=== PATIENT | male | born 1950 | race Caucasian/White ===

== ENCOUNTER → 2017-01-16 | Outpatient (CLI) | payer OTHER, MEDICARE | LOC: FIMAGING 07:29 | PROVIDERS: ATTEND Internal Medicine | DX: R41.89 Other symptoms and signs involving cognitive functions and awareness (principal); R47.9 Unspecified speech disturbances; R51 Headache ==

== ENCOUNTER 2017-05-27 09:20 | Inpatient (IN) | payer OTHER, MEDICARE ==
--- NOTE | 2017-05-27 08:08 | PDHPUP ---
History & Physical Update H&P update statement: This history and physical update is based on an assessment of the patient which was completed after admission or registration (within 24 hours), but prior to the surgery/procedure. H&P update: H&P reviewed & patient examined, no change in patient's condition since H&P completed
[~2017-05-27 09:20] MED LIST: BUPI/epINEPH/KETOROLAC IU ONE; ROPIVACAINE 0.2% 80 MG, EPINEPHrine 0.2 MG, KETOROLAC TROMETHAMINE 30 MG in SYRINGE 0 ML IU ONE; TRANEXAMIC ACID 3,000 MG in NS (SYRINGE) 50 ML IRR ONE; TRANEXAMIC ACID 3,000 MG/50 ML BAG IRR ONE
[2017-05-27] MEDS ORDERED: ceFAZolin 2 GM/SWFI 2 GM/20 ML SYR IVP ONE (09:47)
[2017-05-27] MEDS ORDERED: DEXAMETHASONE 4 MG/ML VIAL IVP ONE (09:47)
[2017-05-27] MEDS ORDERED: FAMOTIDINE 20 MG TAB PO ONE (09:47)
[2017-05-27] MEDS ORDERED: ACETAMINOPHEN 325 MG TAB PO ONE (09:47)
[2017-05-27] MEDS ORDERED: LR 1,000 ML IV ONE (09:48)
[2017-05-27] MEDS ORDERED: LIDOCAINE 1% 2 ML INJ ID PRN (09:48)
--- NOTE | 2017-05-27 10:15 | PDANEPAE ---
ANE History of Present Illness 66 yo male with L hip OA for L ELIDA. ANE Past Medical History - Cardiovascular History Hx Hypertension: No Hx Arrhythmias: No Hx Chest Pain: No Hx Coronary Artery / Peripheral Vascular Disease: No Hx CHF / Valvular Disease: No Hx Palpitations: No - Pulmonary History Hx COPD: No Hx Asthma/Reactive Airway Disease: No Hx Recent Upper Respiratory Infection: No Hx Oxygen in Use at Home: No Hx Sleep Apnea: Yes Sleep Apnea Screening Result - Last Documented: Positive Pulmonary History Comment: JESSICA uses C-PAP - Neurologic History Hx Cerebrovascular Accident: No Hx Seizures: No Hx Dementia: No Neurologic History Comment: h/o CHI 40 years ago, no sequelae now - Endocrine History Hx Diabetes: No Hypothyroid: No Hyperthyroid: No Obesity: no - Renal History Hx Renal Disorders: No - Liver History Hx Hepatic Disorders: No - Neurological & Psychiatric Hx Hx Neurological and Psychiatric Disorders: Yes Neurological / Psychiatric History Comment: depression - Cancer History Hx Cancer: No - Congenital Disorder History Hx Congenital Disorders: No - GI History Hx Gastrointestinal Disorders: Yes Gastrointestinal History Comment: IBS - Other Health History Other Health History: cataracts - Chronic Pain History Chronic Pain: Yes (back issues - upper and lower back, no specific therapies) - Surgical History Prior Surgeries: double hernia with mesh. anal fistula repair. hx of head injury multiple fracture, 40 yrs ago ANE Review of Systems Review of systems is: negative Review of Systems: - Exercise capacity METS (RN): 4 METS ANE Patient History - Allergies Allergies/Adverse Reactions: ciprofloxacin [From Cipro] Allergy (Verified 05/14/17 10:29) Other-Enter Comments - Home Medications Home Medications: Acetaminophen [Tylenol 325mg (*)] 325 mg PO DAILY PRN 05/14/17 [Last Taken 05/26 19:00] FLUoxetine [Prozac 10 MG (*)] 30 mg PO DAILY 05/14/17 [Last Taken 05/27/17 07:00 ] Herbals/Supplements -Info Only 1 ea PO DAILY 05/14/17 [Last Taken 05/20/17] Ibuprofen [Motrin (*)] 200 mg PO DAILY PRN 05/14/17 [Last Taken 05/20/17] - NPO status NPO Since - Liquids (Date): 05/27/17 NPO Since - Liquids (Time): 08:00 NPO Since - Solids (Date): 05/26/17 NPO Since - Solids (Time): 19:00 - Anes Hx Anes Hx: no prior problems - Smoking Hx Smoking Status: Former smoker (remote h/p smoking as a teenager) Marijuana use: Yes - Alcohol Use Alcohol Use: Rarely - Family Anes Hx Family Anes Hx: neg - N/A Family Hx Anesthesia Complications: none ANE Labs/Vital Signs - Vital Signs Blood Pressure: 169/81 Heart Rate: 57 Respiratory Rate: 16 O2 Sat (%): 99 Height: 177.8 cm Weight: 83.915 kg ANE Physical Exam - Airway Neck exam: FROM Mallampati Score: Class 2 Mouth exam: normal dental/mouth exam - Pulmonary Pulmonary: clear to auscultation - Cardiovascular Cardiovascular: regular rate and rhythym, no murmur, rub, or gallop - ASA Status ASA Status: II ANE Anesthesia Plan Anesthesia Plan: spinal
[2017-05-27] MEDS ORDERED: LIDOCAINE 2% 5 ML SDV ONE (10:57)
[2017-05-27] MEDS ORDERED: fentaNYL 100 MCG/2 ML INJ ONE (10:57)
[2017-05-27] MEDS ORDERED: DEXAMETHASONE 4 MG/ML VIAL ONE (10:57)
[2017-05-27] MEDS ORDERED: PROPOFOL/EMULSION 500 MG/50 ML BOTTLE IV ONE (10:58)
[2017-05-27] MEDS ORDERED: PROMETHAZINE HCL 25 MG/ML INJ IVP PRN (12:31)
[2017-05-27] MEDS ORDERED: ONDANSETRON DISINTEGRATING 4 MG TAB PO PRN (12:31)
[2017-05-27] MEDS ORDERED: diphenhydrAMINE 25 MG CAP PO PRN (12:31)
[2017-05-27] MEDS ORDERED: CYCLOBENZAPRINE 10 MG TAB PO PRN (12:31)
[2017-05-27] MEDS ORDERED: PROMETHAZINE HCL 25 MG SUPPR PR PRN (12:31)
[2017-05-27] MEDS ORDERED: TEMAZEPAM 15 MG CAP PO PRN (12:31)
[2017-05-27] MEDS ORDERED: DIPHENOXYLATE/ATROPINE LOMOTIL 1 TAB PO PRN (12:31)
[2017-05-27] MEDS ORDERED: ONDANSETRON 4 MG/2 ML VIAL IVP PRN (12:31)
[2017-05-27] MEDS ORDERED: METOCLOPRAMIDE 10 MG/2 ML VIAL IVP PRN (12:31)
[2017-05-27] MEDS ORDERED: POLYETHYLENE GLYCOL 3350 17 GM PKT PO PRN (12:31)
[2017-05-27] MEDS ORDERED: MAGNESIUM HYDROXIDE 30 ML UDCUP PO PRN (12:31)
[2017-05-27] MEDS ORDERED: BISACODYL 10 MG SUPP PR PRN (12:31)
[2017-05-27] MEDS ORDERED: LACTULOSE 20 GM/30 ML UDCUP PO PRN (12:31)
--- NOTE | 2017-05-27 12:35 | POSTOPPROG ---
Post Op Note Date of Operation: 05/27/17 Surgeon: Zora Villanueva Destination Sign Repairer: francoise villanueva Anesthesiologist: dr. marr Anesthesia: Spinal Pre-op Diagnosis: L hip OA Post-op Diagnosis: same Indication: left hip pain Procedure: L ELIDA ant approach Findings: severe hip OA Inf/Abcess present in the surg proc area at time of surgery?: No EBL: 100-500
--- NOTE | 2017-05-27 12:39 | POSTANESTH ---
Post Anesthetic Evaluation Cardiovascular Status: Normal, Stable Respiratory Status: Normal, Stable Level of Consciousness/Mental Status: Can Participate in Eval, Moderately Sleepy Pain Control: Adequate, Prn Tx Ordered Nausea/Vomiting Control: Adequate, Prn Tx Ordered Complications Possibly Related to Anesthesia: None Noted
[2017-05-27] MEDS ORDERED: LR 1,000 ML IV SCH (13:00)
--- NOTE | 2017-05-27 13:39 | PDMN ---
Medical Necessity Medical necessity: [facility] IP only surgery; cpt 35096 L ELIDA
[2017-05-27] MEDS ORDERED: ceFAZolin 2 GM/DEXTROSE 100 ML IV SCH (14:00)
[2017-05-27] MEDS: oxyCODONE IR 5 MG TAB PO PRN ×2 (14:28→18:47)
[2017-05-27] MEDS: ACETAMINOPHEN 325 MG TAB PO SCH (18:48)
[2017-05-27] MEDS: ceFAZolin 2 GM/SWFI 2 GM/20 ML SYR IVP SCH (20:07)
[2017-05-27] MEDS: ASPIRIN 81 MG CHEWABLE TAB PO SCH (20:26)
[2017-05-27] MEDS: SENNOSIDES/DOCUSATE SODIUM TAB PO SCH (20:26)
[2017-05-27] MEDS: FAMOTIDINE 20 MG TAB PO SCH (20:26)
[2017-05-28] MEDS: ACETAMINOPHEN 325 MG TAB PO SCH ×3 (00:05→13:23)
[2017-05-28] MEDS: ceFAZolin 2 GM/SWFI 2 GM/20 ML SYR IVP SCH (04:05)
[2017-05-28] MEDS: oxyCODONE IR 5 MG TAB PO PRN (05:53)
[2017-05-28 07:31] VITALS: BP 129/70
[2017-05-28] MEDS ORDERED: FLUoxetine 20 MG CAP PO SCH (09:00)
[2017-05-28] MEDS ORDERED: FLUoxetine 10 MG CAP PO SCH ×2 (09:00→09:45)
[2017-05-28] MEDS: FAMOTIDINE 20 MG TAB PO SCH (10:03)
[2017-05-28] MEDS: ASPIRIN 81 MG CHEWABLE TAB PO SCH (10:03)
[2017-05-28] MEDS: SENNOSIDES/DOCUSATE SODIUM TAB PO SCH (10:03)
[2017-05-29] MEDS ORDERED: FLUoxetine 10 MG CAP PO SCH (09:00)
--- NOTE | 2017-05-29 15:16 | GOP ---
[f rep st] OPERATIVE REPORT DATE OF OPERATION: 05/27/2017 SURGEON: Lexi Prescott MD CLOSING AGENT: Rosa Prescott PA-C ANESTHESIA: Spinal. PREOPERATIVE DIAGNOSIS: Left hip osteoarthritis. POSTOPERATIVE DIAGNOSIS: Left hip osteoarthritis. PROCEDURE PERFORMED: Left total hip arthroplasty. FINDINGS: ESTIMATED BLOOD LOSS: 200 cc. IMPLANTS: Accolade II, size 8 at 127. The acetabular component is a 56 mm Tritanium. The liner is a Trident X3, 36 mm. The head is a Biolox Delta, 36 mm +5. INDICATIONS: The patient has progressively worsening arthritis of the hip which has failed medical management. The patient understands the treatment options including continued non-operative care and has selected surgical intervention. The patient has decided to undergo total hip arthroplasty via the direct anterior approach, understanding the risks of the procedure including, but not limited to, neurovascular injury, infection, persistent pain, component wear and loosening, deep venous thrombosis, pulmonary embolism, limb length inequality, hip instability (including dislocation), and intra-operative fractures. DESCRIPTION OF PROCEDURE: After proper identification of the patient including verification and marking the surgical site, the patient was brought to the operating room and placed in the supine position. All bony prominences were well padded. Anesthesia was induced without complication and intravenous prophylactic antibiotics were administered prior to skin incision. The operative leg was placed in the Trumpf Arch table extension and the well leg in a [place] leg adams. The patient was prepped and draped in the usual sterile fashion. The C-arm was draped for intra-operative fluoroscopy to check acetabular position, femoral component position including leg length and femoral offset. Attention was then drawn to surgical exposure of the hip. An incision was made with a #10 Bard Keven blade starting 3 cm lateral and 3 cm distal to the anterior superior iliac spine measuring 8-10 cm and coursing distally toward the greater trochanter. The skin and subcutaneous tissues were divided sharply down to the fascia yan. The fascia yan was incised in line with the skin incision exposing the underlying tensor fascia yan muscle. The muscle was bluntly elevated from the fascia and the first extracapsular Cobra retractor was placed laterally at the junction of the superior femoral neck and greater trochanter. The lateral femoral circumflex vessels were identified, cauterized, and divided with the Aquamantys bipolar cautery. The deep investing fascia of the TFL was divided to allow proper mobilization of the muscle preventing damage during the retraction. The reflected head of the rectus femoris muscle was elevated off the anterior hip capsule and a medial Cobra retractor was placed just proximal to the lesser trochanter. The anterior capsulotomy was made sharply from the superolateral acetabulum to the saddle junction of the superior femoral neck and greater trochanter, then coursing inferomedial towards the lesser trochanter. The retractors were then placed in the intracapsular position for femoral neck osteotomy. Corresponding to pre-operative templating, the osteotomy was made with the oscillating saw carefully protecting the greater trochanter and soft tissues. The femoral head was removed from the acetabulum with a corkscrew and confirmed to be severely arthritic with exposed bone, deformity and osteophytes. Similar findings were confirmed in the acetabulum. The Arch table extension was then placed in 40 degrees external rotation. Attention was then drawn to the acetabular preparation. After placement of the anterior and posterior Cobra retractors outside the labrum and intracapsular, the circumferential labrum was removed sharply. The foveal contents were then removed and hemostasis obtained with cautery. The first reamer selected was sized using the removed femoral head. Reaming began with medialization and then commenced in 2 mm increments at 45 degrees of abduction and 15 degrees of anteversion using fluoroscopic navigation. Reaming ceased 1 mm less than the definitive acetabular component and corresponded to the pre-operative templating. The final acetabular component was inserted using fluoroscopy to achieve proper orientation yielding excellent purchase and stability in the acetabulum. The final acetabular liner was then placed and its seating confirmed. Attention was then turned to the femur. The Arch table extension was placed in extension and adduction, delivering the osteotomized femoral neck into the wound. A 2-pronged femoral elevator was placed at the calcar and another at the tip of the greater trochanter. The posterolateral capsule was released with cautery allowing mobilization of the femur lateral and anterior for preparation. The external rotators were visualized and preserved. A curette and rongeur were used to open the starting point for broaching. Serial broaching started with the #0 broach and ended with the broach that exhibited excellent fit in the proximal femur. A change in pitch during mallet strikes was accompanied by the inability to advance the broach any further. The trial reduction was performed and fluoroscopic navigation was utilized to check limb length. Adjustments were made to equalize limb length accordingly. After the final trials were accepted they were removed and the wound was copiously lavaged. The femoral component was seated to the same depth as the final broach and the femoral head was impacted onto the clean trunion. The hip was then reduced for the final time and once more fluoroscopy was used to check that limb length equality was achieved. The wound was irrigated and closed in layers, the fascia yan with 2-0 Quill, the subcutaneous tissue with 2-0 Quill, and the skin with Dermabond. Sterile dressings were applied. Final sharps and sponge counts were accurate. The patient was then transferred to a hospital bed and brought to the recovery room in stable condition. /[id number]/MODL MTDD
== END 2017-05-28 12:03 | disposition home or self-care (01) | DRG 470 ==
LOC: F3N 09:20
PROVIDERS: ADMIT Orthopaedic Surgery; ATTEND Orthopaedic Surgery
PROC: 0SRB04Z Replacement of Left Hip Joint with Ceramic on Polyethylene Synthetic Substitute, Open Approach (ICD-10-PCS; principal; 2017-05-27 11:15)
DX: M16.12 Unilateral primary osteoarthritis, left hip (principal); G47.33 Obstructive sleep apnea (adult) (pediatric); F32.9 Major depressive disorder, single episode, unspecified; K58.9 Irritable bowel syndrome, unspecified
CPT/HCPCS: 97110-GP; 97116-GP; 97161-GP; 97165-GO; 97535-GO; G8978-GP-CI; G8978-GP-CJ; G8979-GP-CI; G8980-GP-CI; G8987-GO-CI; G8988-GO-CI; G8989-GO-CI; J0171; J0690; J1100; J1885; J2704; J3010